=== PATIENT | male | born 1985 | race Asian ===

== ENCOUNTER → 2023-06-28 | Outpatient (CLI) | payer BC, SELFPAY ==
[2023-06-28 14:30] LABS: Bacteria 0 SEEN /hpf (None Seen); Mucous, Urine 0 SEEN /hpf (<or=2+); Red Blood Cells-Urine 0 SEEN /hpf (0-5); Squamous Epithelial Cells - UA 0 SEEN /hpf (0-5); White Blood Cells 0 SEEN /hpf (0-5)
[2023-06-28 17:48] LABS: Absolute Lymphocyte Count 1.82 X10^3/uL (0.83-4.51); Absolute Neutrophil Count 2.5 X10^3/uL (2.0-7.7); Basophil# 0.04 X10^3/uL; Basophil% 0.8 % (0-1); Eosinophil# 0.06 X10^3/uL; Eosinophils% 1.3 % (0-5); Hematocrit 49.1 % (40-54); Hemoglobin 15.5 g/dL (13.0-16.5); Lymphocyte # 1.82 X10^3/ul (0.83-4.51); Lymphocyte % 38.1 % (19-41); Mean Corp Hgb Conc 31.6 g/dL (32-36); Mean Corpuscular Hgb 28.5 pg (27.0-32.0); Mean Corpuscular Volume 90.4 fL (80-94); Mean Platelet Vol. 10.8 fl (6.2-12.0); Monocyte# 0.39 X10^3/uL; Monocyte% 8.2 % (0-10); NRBC Flagged by Analyzer 0 % (0-5); Neutrophil # 2.46 X10^3/uL (2.7-7.7); Neutrophil % 51.4 % (47-70); Platelet Count 257 K/mm3 (150-450); RBC Distribution Width CV 11.6 % (11.6-14.6); RBC Distribution Width SD 38.4 fl (35.1-43.9); Red Blood Count 5.43 M/mm3 (4.6-6.2); White Blood Count 4.8 K/mm3 (4.4-11.0)
[2023-06-28 18:08] LABS: Vitamin D,25 Hydroxy 18.8 ng/mL
[2023-06-28 18:16] LABS: AST(SGOT) 67 U/L (15-37); Alanine Aminotransfer ALT/SGPT 176 U/L (16-61); Albumin, Serum 4.2 g/dL (3.2-5.0); Alkaline Phosphatase 83 U/L (45-117); Anion Gap 6 (5-15); BUN 12 mg/dL (7-18); BUN/Creat Ratio 13.1 RATIO (10-20); Calcium,Total 9.3 mg/dL (8.5-10.1); Chloride 104 mmol/L (98-107); Cholesterol 251 mg/dL (200); Creatinine, Serum 0.92 mg/dL (0.70-1.30); EST Glomerular Filtration Rate 99 mL/min (>60); Est Glom Filt Rate - Afr Amer 119 mL/min (>60); Globulin 4.3 g/dL (2.2-4.2); Glucose 125 mg/dL (74-106); High Density Lipoprotein 56 mg/dL; Potassium 3.5 mmol/L (3.5-5.1); Protein, Total 8.5 g/dL (6.4-8.2); Sodium Level 139 mmol/L (136-145); T4 Free Direct 0.91 ng/dL (0.76-1.46); Thyroid Stim Hormone (TSH) 1.32 uIU/mL (0.358-3.74); Triglycerides 168 mg/dL; Very Low Density Lipoprotein 34 mg/dL (5-40)
[2023-06-28 18:43] LABS: Color, Urine Yellow (Yellow); Glucose, Dipstick Normal (Normal); Ketone-Dipstick Negative (Negative); Leukocyte Esterase-Dipstick Negative /ul (Negative); Nitrite-Dipstick Negative (Negative); Occult Blood-Urine Negative /ul (Negative); Protein-Dipstick Negative (Negative); Urine Bilirubin Dipstick Negative (Negative); Urine Clarity Clear (Clear); Urine Urobilinogen Normal (Normal)
[2023-06-30 14:37] LABS: Hemoglobin A1c 5.2 % (3.8-5.6)
[2023-07-02 16:10] LABS: Anti-Thyroglobulin AB < 1.0 IU/mL (0.0-0.9); Thyroid Stim Immunoglob <0.10 IU/L (0.00-0.55)
== END | disposition home or self-care (01) ==
PROVIDERS: PCP Family Medicine; Referring Provider Family Medicine; Visit Provider Family Medicine
DX: E55.9 Vitamin D deficiency, unspecified (principal); E01.0 Iodine-deficiency related diffuse (endemic) goiter; F17.200 Nicotine dependence, unspecified, uncomplicated; R73.09 Other abnormal glucose
CPT/HCPCS: 36415; 80053; 80061; 81001; 82306; 83036; 84432; 84439; 84443; 84445; 85025; 86376; 86800

== ENCOUNTER → 2023-07-16 | Outpatient (CLI) | payer BC, SELFPAY ==
--- NOTE | 2023-07-16 12:53 | US_ITS ---
STUDY: THYROID ULTRASOUND REASON FOR EXAM: Male, 38 years old. THYROMEGALY TECHNIQUE: Ultrasound evaluation of the thyroid was performed with real-time and static aaron-scale imaging. COMPARISON: None. FINDINGS: RIGHT LOBE: The right lobe of the thyroid gland measures 4.9 x 1.7 x 1.6 cm. There is a heterogeneous echotexture. There are no demonstrated solid, cystic or complex lesions. LEFT LOBE: The left lobe of the thyroid gland measures 4.7 x 1.5 x 1.3 cm. There is a heterogeneous echotexture. There are no demonstrated solid, cystic or complex lesions. ISTHMUS: The isthmus measures 2 mm thick. . The regional lymph nodes are normal. US/Thyroid IMPRESSION: Thyroiditis but no dominant nodule. Electronically Signed: Dat Coleman MD at 8:26 EDT ,
== END | disposition home or self-care (01) ==
PROVIDERS: PCP Family Medicine; Referring Provider Family Medicine; Visit Provider Family Medicine
DX: E01.0 Iodine-deficiency related diffuse (endemic) goiter (principal)
CPT/HCPCS: 76536

== ENCOUNTER → 2023-07-30 | Outpatient (CLI) | payer BC, SELFPAY ==
[2023-07-30 18:34] LABS: ALB/GLOB Ratio 0.9 RATIO (0.9-2.4); AST(SGOT) 68 U/L (15-37); Alanine Aminotransfer ALT/SGPT 111 U/L (16-61); Albumin, Serum 3.9 g/dL (3.2-5.0); Alkaline Phosphatase 85 U/L (45-117); Anion Gap 5 (5-15); BUN 11 mg/dL (7-18); BUN/Creat Ratio 10.4 RATIO (10-20); Chloride 105 mmol/L (98-107); Creatinine, Serum 1.06 mg/dL (0.70-1.30); EST Glomerular Filtration Rate 83 mL/min (>60); Est Glom Filt Rate - Afr Amer 101 mL/min (>60); Globulin 4.2 g/dL (2.2-4.2); Glucose 139 mg/dL (74-106); Potassium 3.6 mmol/L (3.5-5.1); Protein, Total 8.1 g/dL (6.4-8.2); Sodium Level 138 mmol/L (136-145)
[2023-07-30 18:59] LABS: Hepatitis B Surface Antibody Reactive; Hepatitis B Surface Antigen Non-Reactive (Nonreactive); Hepatitis C Antibody Non-Reactive (Nonreactive)
== END | disposition home or self-care (01) ==
LOC: MTLAB 15:01
PROVIDERS: PCP Family Medicine; Referring Provider Family Medicine; Visit Provider Family Medicine
DX: R79.89 Other specified abnormal findings of blood chemistry (principal)
CPT/HCPCS: 36415; 80053; 86706; 86803; 87340

== ENCOUNTER → 2023-08-08 | Outpatient (CLI) | payer BC, SELFPAY ==
--- NOTE | 2023-08-08 09:18 | US_ITS ---
STUDY: ABDOMINAL ULTRASOUND - RIGHT UPPER QUADRANT REASON FOR VISIT: Male, 38 years old elevated LFT''s TECHNIQUE: Ultrasound evaluation of the right upper quadrant was performed with real-time and static aaron-scale imaging. TECHNICAL QUALITY: Limited. Examination limited by bowel gas. COMPARISON: None. FINDINGS: Liver: The liver measures 15.9 cm. There is increased echogenicity consistent with fatty infiltration. The bile ducts are within normal limits. There is hepatic color flow. The direction of portal flow is hepatopetal. There is no demonstrated mass lesion. Gallbladder: Normal distended gallbladder. The gallbladder wall measures 1.9 mm. There is a negative sonographic Ragsdale''s sign. There is no pericholecystic fluid. There are no gallstones. Common Bile Duct (C.B.D.): The common bile duct measures 3.0 mm. Pancreas: Normal size of the head of the pancreas. Body and tail portions are obscured due to overlying bowel gas. There is normal echogenicity of the pancreas. There is no demonstrated pancreatic mass or cyst. Right Kidney: Normal size of the right kidney. The right kidney measures 10.1 cm x 4.8 cm x 6.1 cm. Normal renal cortex. The right cortex measures 1.7 cm. There is no demonstrated renal mass or cyst. There is no right hydronephrosis. US/Abdomen Limited IMPRESSION: Fatty infiltration of the liver. Electronically Signed: Nathaniel Knight MD at 10:41 EDT ,
== END | disposition home or self-care (01) ==
PROVIDERS: PCP Family Medicine; Referring Provider Family Medicine; Visit Provider Family Medicine
DX: R79.89 Other specified abnormal findings of blood chemistry (principal)
CPT/HCPCS: 76705

== ENCOUNTER → 2025-09-22 | Outpatient (CLI) | payer BC, SELFPAY ==
[2025-09-22 15:35] LABS: Hematocrit 44.6 % (40-54); Hemoglobin 15.0 g/dL (13.0-16.5); Immature Granulocytes Count 0.010 X10^3/uL (0.0-0.0); Mean Corp Hgb Conc 33.6 g/dL (32-36); Mean Corpuscular Volume 86.8 fL (80-94); Mean Platelet Vol. 10.1 fl (6.2-12.0); NRBC Flagged by Analyzer 0 % (0-5); Platelet Count 279 K/mm3 (150-450); RBC Distribution Width CV 11.4 % (11.6-14.6); RBC Distribution Width SD 36.4 fl (35.1-43.9); Red Blood Count 5.14 M/mm3 (4.6-6.2); White Blood Count 5.3 K/mm3 (4.4-11.0)
[2025-09-22 16:13] LABS: AST(SGOT) 21 U/L (<=37); Alanine Aminotransfer ALT/SGPT 17 U/L (<=46); Albumin, Serum 4.6 g/dL (3.5-5.0); Alkaline Phosphatase 72 U/L (40-129); Anion Gap 10 (5-15); BUN 9 mg/dL (4-19); BUN/Creat Ratio 10.7 RATIO (10-20); Calcium,Total 9.1 mg/dL (7.6-11.0); Carbon Dioxide 28.0 mmol/L (21.0-32.0); Chloride 102 mmol/L (98-108); Cholesterol 219 mg/dL (<=200); Globulin 2.9 g/dL (2.2-4.2); Glucose 103 mg/dL (70-99); Low Density Lipoprotein Calc. 122 mg/dL; Potassium 3.9 mmol/L (3.3-5.1); Triglycerides 133 mg/dL; Very Low Density Lipoprotein 27 mg/dL (5-40); Vitamin D,25 Hydroxy 8.6 ng/mL (30-100); cholesterol:hdl ratio screen 2.98
== END | disposition home or self-care (01) ==
LOC: MTLAB 13:41
PROVIDERS: PCP Family Medicine; Referring Provider Family Medicine; Visit Provider Family Medicine
DX: R73.09 Other abnormal glucose (principal); E78.5 Hyperlipidemia, unspecified
CPT/HCPCS: 36415; 80053; 80061; 82306; 83036; 85025